=== PATIENT | male | born 1975 | race Caucasian/White ===

== ENCOUNTER 2021-05-16 09:01 | Outpatient (CLI) | payer OTHER, SELFPAY ==
--- NOTE | 2021-05-16 09:24 | ECG_ITS ---
Measurements Intervals [place] Rate: 47 P: 51 RI: 145 QRS: 31 QRSD: 98 T: 35 QT: 427 QTc: 378 Interpretive Statements MARKED SINUS BRADYCARDIA NONSPECIFIC T-WAVE ABNORMALITY ABNORMAL ECG NO PREVIOUS ECG AVAILABLE FOR COMPARISON Electronically Signed On 05-16-2021 16:23:15 CDT by Duran Mosley M.D.
== END 2021-05-16 09:02 | disposition home or self-care (01) ==
LOC: ANHCARD 09:05
PROVIDERS: PCP Family Medicine; Visit Provider Nurse Practitioner Family
DX: R07.89 Other chest pain (principal); R94.31 Abnormal electrocardiogram [ECG] [EKG]
CPT/HCPCS: 93005

== ENCOUNTER 2021-06-12 08:59 | Outpatient (CLI) | payer OTHER, SELFPAY ==
--- NOTE | 2021-06-12 09:10 | EST_ITS ---
Patient Info Name: Tung Boogie Age: 46 years : 1975 Gender: Male Ht: 72 in Wt: 196 lbs BSA: 2.14 m2 Exam Date: 06/12/2021 9:24 AM Exam Location: [facility] Stress Patient Status: Outpatient Admit Date: 06/12/2021 Staff Ordering Physician: Ebonie Guzmán Attending Provider: Ebonie Guzmán Exercise Technologist: Staci Cormier CT Exercise Physician: Michael Landaverde DO Exam Type: CA stress test treadmill Study Info Indications R07.9 - Chest pain, unspecified An exercise stress test was performed. Summary 1. 1. Negative Etienne exercise stress test for ischemic ST changes by ECG criteria. 2. 2. Good functional capacity, achieving 12 METs of workload. 3. 3. Baseline hypertension with hypertensive response to exercise. 4. 4. Appropriate HR response to exercise. 5. 5. Appropriate HR recovery at 1 minute post exercise. 6. 6. No imaging with stress testing. 7. 7. Patient informed of the above results. Protocol: Etienne Stress ECG Details Stage: REST Duration (min): 2 min : 26 sec Speed (mph): 0.0 Grade (%): 0 HR (bpm): 67 SBP (mmHg): 147 DBP (mmHg): 94 METS: --- Stage: REST Duration (min): 4 min : 39 sec Speed (mph): 0.0 Grade (%): 0 HR (bpm): 76 SBP (mmHg): 147 DBP (mmHg): 94 METS: --- Stage: STAGE 1 Duration (min): 1 min : 0 sec Speed (mph): 1.7 Grade (%): 10 HR (bpm): 83 SBP (mmHg): 147 DBP (mmHg): 94 METS: --- Stage: STAGE 1 Duration (min): 2 min : 0 sec Speed (mph): 1.7 Grade (%): 10 HR (bpm): 86 SBP (mmHg): 147 DBP (mmHg): 94 METS: --- Stage: STAGE 1 Duration (min): 3 min : 0 sec Speed (mph): 1.7 Grade (%): 10 HR (bpm): 88 SBP (mmHg): 159 DBP (mmHg): 89 METS: --- Stage: STAGE 2 Duration (min): 1 min : 0 sec Speed (mph): 2.5 Grade (%): 12 HR (bpm): 94 SBP (mmHg): 159 DBP (mmHg): 89 METS: --- Stage: STAGE 2 Duration (min): 2 min : 0 sec Speed (mph): 2.5 Grade (%): 12 HR (bpm): 96 SBP (mmHg): 161 DBP (mmHg): 88 METS: --- Stage: STAGE 2 Duration (min): 3 min : 0 sec Speed (mph): 2.5 Grade (%): 12 HR (bpm): 101 SBP (mmHg): 161 DBP (mmHg): 88 METS: --- Stage: STAGE 3 Duration (min): 1 min : 0 sec Speed (mph): 3.4 Grade (%): 14 HR (bpm): 108 SBP (mmHg): 188 DBP (mmHg): 88 METS: --- Stage: STAGE 3 Duration (min): 2 min : 0 sec Speed (mph): 3.4 Grade (%): 14 HR (bpm): 114 SBP (mmHg): 188 DBP (mmHg): 88 METS: --- Stage: STAGE 3 Duration (min): 3 min : 0 sec Speed (mph): 3.4 Grade (%): 14 HR (bpm): 116 SBP (mmHg): 196 DBP (mmHg): 91 METS: --- Stage: STAGE 4 Duration (min): 1 min : 0 sec Speed (mph): 4.2 Grade (%): 16 HR (bpm): 133 SBP (mmHg): 196 DBP (mmHg): 91 METS: --- Stage: ST
== END 2021-06-12 09:00 | disposition home or self-care (01) ==
LOC: ANHCARD 09:02
PROVIDERS: PCP Family Medicine; Visit Provider Nurse Practitioner Family
DX: R07.89 Other chest pain (principal)
CPT/HCPCS: 93017

== ENCOUNTER → 2021-09-29 16:30 | Outpatient (CLI) | payer OTHER, SELFPAY ==
--- NOTE | ~2021-09-29 | XR_ITS ---
XR hip RT 2V w AP pelvis DATE: 09/29/2021 16:47 INDICATION: Right hip pain TECHNIQUE: AP pelvis. AP and lateral views of right hip COMPARISON: None FINDINGS: No pelvic fracture or bone destruction. The pubic symphysis and sacroiliac joints are intac t. There is mildly severe right hip osteoarthritis including joint space narrowing and spurring. No frac ture or dislocation or bone destruction of the right hip is detected. IMPRESSION: Moderately severe right hip osteoarthritis Reviewed, dictated and finalized at location B.
== END ==
PROVIDERS: PCP Family Medicine; Visit Provider Nurse Practitioner Family
DX: M25.551 Pain in right hip (principal); M16.11 Unilateral primary osteoarthritis, right hip
CPT/HCPCS: 73502

== ENCOUNTER → 2022-02-04 07:35 | Outpatient (CLI) | payer OTHER, SELFPAY ==
--- NOTE | ~2022-02-04 | MR_ITS ---
MRI of the right hip Clinical history: Right hip pain Technique: Coronal T1-weighted, T2-weighted, and proton density fat sat images, and axial T1-weighted and proton-density fat-sat images were acquired through the pelvis. Coronal T2-weighted and proton-d ensity fat-sat images, axial proton density fat-sat images, and sagittal proton density fat sat image s were acquired to the right hip. Findings: There is no fracture, avascular necrosis or transient osteoporosis of either hip. There is moderate osteoarthritis of the right hip joint. There is diffuse chondromalacia of the right hip join t with joint space narrowing and osteophyte formation at the right femoral head neck junction. Minima l right hip joint effusion present. There is probable mild degenerative change of the left hip joint with probable mild diffuse chondromalacia. Suspected subtle superior right acetabular labral tear, likely on a degenerative basis. Visualized musculature about the pelvis and right hip is unremarkable. No muscle atrophy or edema. No evidence for bursitis. No soft tissue mass identified. Visualized tendons appear intact. IMPRESSION: Moderate osteoarthritis of the right hip joint, as detailed above. Reviewed, dictated and finalized at location [] [facility]
== END ==
PROVIDERS: PCP Family Medicine; Visit Provider Nurse Practitioner Family
DX: M16.11 Unilateral primary osteoarthritis, right hip (principal)
CPT/HCPCS: 73721

== ENCOUNTER 2023-04-27 07:57 | Outpatient (CLI) | payer OTHER, SELFPAY | END 2023-04-27 07:58 | disposition home or self-care (01) | LOC: ANHAUDIO 07:57 | PROVIDERS: PCP Family Medicine; Visit Provider Nurse Practitioner Adult Health | DX: H90.0 Conductive hearing loss, bilateral (principal); H93.12 Tinnitus, left ear | CPT/HCPCS: 92557; 92567 ==

== ENCOUNTER 2023-08-23 14:15 | Outpatient (CLI) | payer OTHER, SELFPAY ==
--- NOTE | 2023-08-23 14:30 | ECG_ITS ---
Test Date: 2023-08-23 14:32:44 Measurements Intervals [place] Rate: 54 P: 21 DC: 142 QRS: 7 QRSD: 108 T: -35 QT: 419 QTc: 400 Interpretive Statements SINUS BRADYCARDIA BASELINE ARTIFACT- I, II, III, AVR, AVL, AVF, V1-V6 BORDERLINE ECG No previous ECG available for comparison Electronically Signed On 08-23-2023 15:16:50 CDT by Michael Landaverde D.O.
== END 2023-08-23 14:16 | disposition home or self-care (01) ==
LOC: ANHSURGERY 14:18
PROVIDERS: PCP Family Medicine; Visit Provider Otolaryngology
DX: Z01.818 Encounter for other preprocedural examination (principal); I10 Essential (primary) hypertension
CPT/HCPCS: 93005

== ENCOUNTER 2023-08-27 00:11 | Day surgery (SDC) | payer OTHER, SELFPAY ==
[2023-08-18 15:01] VITALS: BMI 27.9
--- NOTE | 2023-08-18 15:02 | PC.NURSE ---
Report to the Outpatient Waiting Room, entrance under the green pavilion located off [facility], at time _1130_ on date _[id number]_. Planned Procedure Time: _130pm_. Time changes happen often and if your time is changed the preop area will call you the afternoon before. - You and your visitor will be asked to self-screen and do not enter if you have any COVID symptoms. - A mask is optional within the hospital at this time. Patients may have clear liquids (water, carbonated beverages, clear teas, apple juice) until 3 hours prior to surgery with a maximum of 20 ounces. - No food from midnight until time of surgery Take the following medications with a SIP of water the morning of surgery: __Metoprolol, Azestaline and Flonase DO NOT STOP ANY OF YOUR OTHER PRESCRIPTION MEDICATIONS PRIOR TO SURGERY ?EXCEPT THE FOLLOWING Medications to discontinue per physician ____Fish oil and vitamin Date to take last jnqh___[phone] Please no make-up, nail hungarian, hairspray, perfume, deodorant, or body powder the day of surgery. No jewelry (including any body piercings) or valuables the day of surgery, leave them at home. Please take a shower or bath the night before, or the morning of, surgery with an antibacterial soap. Wear comfortable, loose fitting clothing. - Jewelry must be removed prior to entering the operating room. Rings and piercings that are not removed may be cut off. - The hospital will not accept responsibility for valuables. - Please leave all valuables, including medications, at home the day of surgery. If you are going home after surgery, a licensed milk pickup truck driver must drive you home. - NO public transportation without another adult if you receive anesthesia. - We recommend that an adult stay with you for 24 hours following discharge. - We also recommend that you do not drive, make important decision, drink alcoholic beverages, or take any drugs that were not prescribed by your health care provider for at least 24 hours after your discharge time. Follow any additional instructions given to you from your surgeon. If you or anyone in your household have experienced Covid symptoms in the past week, please notify your surgeon or the nurse liaison at the phone number below for possible testing. Telephone instructions given to __Jay__and asked if any additional questions and then verbalized understanding. Patient advised to call surgeon office or pre surgery nurse liaison [phone] if any additional questions.
--- NOTE | 2023-08-26 15:51 | PM.IMHP ---
H&P: HPI History of Present Illness Date/Time: 08/26/23 15:51 Chief Complaint: recurrent otitis media chronic otitis media Narrative: planned procedure Review of Systems Review of Systems: All systems reviewed & are unremarkable except as noted in HPI and below [facility] Past Medical History Medical History Arthritis of hip BMI 26.0-26.9,adult Degenerative joint disease (DJD) of hip Dermatitis Elevated glucose Elevated lipids Elevated liver enzymes Essential (primary) hypertension Hearing loss of both ears [place] (hard of hearing) Left ankle pain Right hip pain Screening for malignant neoplasm of prostate Screening for prostate cancer Sensation of chest pressure Sinusitis Trochanteric bursitis, right hip Family History Family History Father Hypertension Social History Social History (Updated 07/22/23 @ 08:29 by Sandra Demarco CMA) Smoking packs per day: 0.5 Smoking cigarettes per day: 10.0 Years smoked: 12 Smoking pack-years: 6.00 Smoking status: Former smoker Tobacco type: cigarettes Smoking end date: 08/18/95 Alcohol intake: current Drinks per week: 12 Substance use: never Substance use type: does not use Do You Feel Safe in your Home?: Yes Lack of Transportation: No Lack of Food: Never True Current Housing: I Have Housing Concerned About Future Housing: No Difficulty Paying Gas/Electric Bills: No Difficulty Paying for Meds: No Currently Unemployed: No Education: Associate Degree Difficulty w/ Childcare or Family Care: No Living arrangements: with family Spiritual care concerns: No Meds Home Medications and Allergies Home Medications Medication Instructions Recorded Confirmed Type clobetasol 0.05 % topical ointment 1 applic topical DAILY PRN 02/12/23 08/18/23 Rx dermatitis #15 grams metoprolol succinate 50 mg 50 mg PO DAILY #90 tabs 05/12/23 08/18/23 Rx tablet,extended release 24 hr fluticasone propionate 50 2 - 3 spray intranasal BID #16 mL 07/22/23 08/18/23 Rx mcg/actuation nasal spray,suspension (Flonase Allergy Relief) lisinopril 20 mg tablet See Rx Instructions .Route 08/06/23 08/18/23 Rx .COMPLEX #180 tabs rosuvastatin 10 mg tablet 10 mg PO DAILY #90 tabs 08/06/23 08/18/23 Rx azelastine 137 mcg (0.1 %) nasal 1 - 2 spray intranasal Q12H #30 mL 08/09/23 08/18/23 Rx spray multivitamin 1 tablet PO DAILY 08/18/23 08/18/23 History omega 8-wpn-zia-fish oil 1,200 mg 1 cap PO DAILY 08/18/23 08/18/23 History (144 mg-216 mg) capsule (Fish Oil) Allergies Allergy/AdvReac Type Severity Reaction Status Date / Time bacitracin Allergy Unknown Unknown Verified 08/18/23 14:51 polymyxin B Allergy Unknown Unknown Verified 08/18/23 14:51 Exam Narrative: fluid in the ears Assessment and Plan Assessment and plan (1) Hearing loss of both ears: Code(s): H91.93 - Unspecified hearing loss, bilateral Status: Acute Assessment and Plan: plan OR bilateral myringotomy with tube insertion, likely T tubes. Risks discussed bleeding infection damage to surrounding structures total deafness facial nerve paralysis cholesteatoma formation failure to resolve symptoms need for tube replacement should they fall out. Postoperative bleeding infection damage to surrounding structures damage to any structure of the clavicle by myself damage to any structure during induction and maintenance of anesthesia and LMA placement or endotracheal tube placement. (2) Chronic otitis media of both ears: Code(s): H66.93 - Otitis media, unspecified, bilateral Status: Acute
[2023-08-27] VITALS (8 sets, daily range): BP systolic 92–137; BP diastolic 58–88; PULSE 43–63; RESP 12–20; TEMP 36.2–36.4; O2SAT 98–100
--- NOTE | 2023-08-27 07:19 | WPDHPUPDATE1 ---
History and Physical Update Update Date/Time: 08/27/23 07:19 History and Physical has been reviewed, including an updated exam of the patient. There are NO changes in the patient's condition. Risks, benefits, and alternatives have been discussed and questions answered. Patient agrees to proceed with procedure.
--- NOTE | 2023-08-27 10:29 | WPDANESEPPF ---
Anes - Initial Pre Proc Eval Procedure: Operation Date: 08/27/23 13:30 Proposed Procedures p Bilateral Myringotomy,Insertion Of Tubes - Miky Reed MD Date/Time: 08/27/23 10:29 Surgeon: Miky Reed MD Pre Op Diagnosis: chronic otitis media Patient Data Age: 48 Gender: M Height: 1.8 m Weight: 90.1 kg Last Vital Signs Temp 36.4 C L 08/27/23 09:56 Pulse 55 L 08/27/23 09:56 Resp 20 08/27/23 09:56 BP 137/81 08/27/23 09:56 Pulse Ox 98 08/27/23 09:56 O2 Del Method Room Air 08/27/23 09:56 Allergies Allergy/AdvReac Type Severity Reaction Status Date / Time bacitracin Allergy Unknown Unknown Verified 08/27/23 09:54 polymyxin B Allergy Unknown Unknown Verified 08/27/23 09:54 Home Medications Medication Instructions Recorded Confirmed Type clobetasol 0.05 % topical ointment 1 applic topical DAILY PRN 02/12/23 08/18/23 Rx dermatitis #15 grams metoprolol succinate 50 mg 50 mg PO DAILY #90 tabs 05/12/23 08/27/23 Rx tablet,extended release 24 hr fluticasone propionate 50 2 - 3 spray intranasal BID #16 mL 07/22/23 08/27/23 Rx mcg/actuation nasal spray,suspension (Flonase Allergy Relief) lisinopril 20 mg tablet See Rx Instructions .Route 08/06/23 08/27/23 Rx .COMPLEX #180 tabs rosuvastatin 10 mg tablet 10 mg PO DAILY #90 tabs 08/06/23 08/27/23 Rx azelastine 137 mcg (0.1 %) nasal 1 - 2 spray intranasal Q12H #30 mL 08/09/23 08/27/23 Rx spray multivitamin 1 tablet PO DAILY 08/18/23 08/27/23 History omega 0-izu-otz-fish oil 1,200 mg 1 cap PO DAILY 08/18/23 08/27/23 History (144 mg-216 mg) capsule (Fish Oil) Patient hx anesthesia problems: none Family hx anesthesia problems: none Results Review: All pre-operative results and documents have been reviewed as part of the pre-operative evaluation. [facility] Past Medical History Medical History Arthritis of hip BMI 26.0-26.9,adult Degenerative joint disease (DJD) of hip Dermatitis Elevated glucose Elevated lipids Elevated liver enzymes Essential (primary) hypertension Hearing loss of both ears [place] (hard of hearing) Left ankle pain Right hip pain Screening for malignant neoplasm of prostate Screening for prostate cancer Sensation of chest pressure Sinusitis Trochanteric bursitis, right hip Family History Family History Father Hypertension Social History Social History Smoking packs per day: 0.5 Smoking cigarettes per day: 10.0 Years smoked: 12 Smoking pack-years: 6.00 Smoking status: Former smoker Tobacco type: cigarettes Smoking end date: 08/18/95 Alcohol intake: current Drinks per week: 12 Substance use: never Substance use type: does not use Do You Feel Safe in your Home?: Yes Lack of Transportation: No Lack of Food: Never True Current Housing: I Have Housing Concerned About Future Housing: No Difficulty Paying Gas/Electric Bills: No Difficulty Paying for Meds: No Currently Unemployed: No Education: Associate Degree Difficulty w/ Childcare or Family Care: No Living arrangements: with family Spiritual care concerns: No Anes - Eval Final PreProcedure Day of Procedure 08/27/23 10:29 Patient weight: overweight Heart: regular rate and rhythm Lungs: clear to auscultation Airway: Mallampati scale class II Neurological: alert and oriented Last oral intake: >/= 8 hours ASA classification: II Emergent: no Anesthetic plan: proceed Anesthesia type and monitoring: general LMA and standard monitoring Results Review: All pre-operative results and documents have been reviewed as part of the pre-operative evaluation. Informed Consent: The patient's anesthetic plan and its attendant risks and benefits were discussed with the patient/family/POA. Questions were solicited and answers provided to the sa
[2023-08-27] MEDS: LACTATED RINGERS 1,000 ML 30 ML IV CONT (10:35)
--- NOTE | 2023-08-27 12:09 | W.PM.PROC2 ---
Procedure Note - Detailed Date of Procedure 08/27/23 Pre-op Diagnosis chronic otitis media Post-op Diagnosis Same Procedure Performed Bilateral myringotomy tube insertion T-Tube Surgeon Miky Reed MD Anesthesia General Indications see above Findings aerated middle ears today Description of Procedure patient identified consent her head preop. Patient brought to the operating. Time-out performed. General anesthesia induced LMA secured. Patient prepped draped position procedure confirmed. Right-sided viewed myringotomy made T-Tube placed aerated middle ear today. Left-sided viewed myringotomy made T-Tube placed drops placed drops placed on the right as well. Aerated middle ears on both sides today. Patient tolerated the procedure well no complications patient taken to. PACU Estimated Blood Loss 0 Drains No Packing No Pathology None sent Complications No immediate complications Condition Stable Disposition PACU [facility] Billing Surgery - Charge Forward: Surgery Billing
== END 2023-08-27 13:40 | disposition home or self-care (01) ==
PROVIDERS: PCP Family Medicine; Visit Provider Otolaryngology
PROC: (CPT 69436; principal; 2023-08-27 13:30)
DX: H66.93 Otitis media, unspecified, bilateral (principal); H91.93 Unspecified hearing loss, bilateral; Z87.891 Personal history of nicotine dependence; I10 Essential (primary) hypertension
CPT/HCPCS: 69436; 93005; A9270; J2250; J3010; J7120

== ENCOUNTER 2023-12-08 01:56 | Day surgery (SDC) | payer OTHER, SELFPAY ==
[2023-11-18 12:58] VITALS: BMI 27.1
[2023-12-08 09:40] VITALS: BP 132/97; PULSE 61; RESP 18; TEMP 35.8; O2SAT 100; BMI 26.2
[2023-12-08] MEDS: LACTATED RINGERS 1,000 ML 150 ML IV CONT (10:01)
--- NOTE | 2023-12-08 10:21 | WPDANESEPPF ---
Anes - Initial Pre Proc Eval Procedure: Operation Date: 12/08/23 11:00 Proposed Procedures p Colonoscopy - Riley Cheng MD Date/Time: 12/08/23 10:21 Surgeon: Riley Cheng MD Pre Op Diagnosis: other fecal abnormalities Patient Data Age: 48 Gender: M Height: 1.83 m Weight: 87.8 kg Last Vital Signs Temp 96.5 F L 12/08/23 09:40 Pulse 61 12/08/23 09:40 Resp 18 12/08/23 09:40 BP 132/97 H 12/08/23 09:40 Pulse Ox 100 12/08/23 09:40 O2 Del Method Room Air 12/08/23 09:40 Allergies Allergy/AdvReac Type Severity Reaction Status Date / Time bacitracin Allergy Unknown Unknown Verified 12/08/23 09:48 polymyxin B Allergy Unknown Unknown Verified 12/08/23 09:48 Home Medications Medication Instructions Recorded Confirmed Type metoprolol succinate 50 mg 50 mg PO DAILY #90 tabs 05/12/23 12/08/23 Rx tablet,extended release 24 hr fluticasone propionate 50 2 - 3 spray intranasal BID #16 mL 07/22/23 12/08/23 Rx mcg/actuation nasal spray,suspension (Flonase Allergy Relief) rosuvastatin 10 mg tablet 10 mg PO DAILY #90 tabs 08/06/23 12/08/23 Rx multivitamin 1 tablet PO DAILY 08/18/23 12/08/23 History omega 1-jwf-uws-fish oil 1,200 mg 1 cap PO DAILY 08/18/23 12/08/23 History (144 mg-216 mg) capsule (Fish Oil) lisinopril 20 mg tablet See Rx Instructions .Route 11/08/23 12/08/23 Rx .COMPLEX #180 tabs Patient hx anesthesia problems: none Family hx anesthesia problems: none Results Review: All pre-operative results and documents have been reviewed as part of the pre-operative evaluation. [facility] Past Medical History Medical History Arthritis of hip Degenerative joint disease (DJD) of hip Dermatitis Elevated glucose Elevated lipids Elevated liver enzymes Essential (primary) hypertension Hearing loss of both ears [place] (hard of hearing) Left ankle pain Right hip pain Screening for malignant neoplasm of prostate Screening for prostate cancer Sensation of chest pressure Sinusitis Trochanteric bursitis, right hip Surgical History Surgical History S/p bilateral myringotomy with tube placement Family History Family History Father Hypertension Social History Social History Smoking packs per day: 1 Smoking cigarettes per day: 20.0 Years smoked: 12 Smoking pack-years: 12.00 Smoking status: Former smoker Tobacco type: cigarettes Smoking end date: 08/18/95 Alcohol intake: current Drinks per week: 18 Substance use: current Substance use type: marijuana Do You Feel Safe in your Home?: Yes Lack of Transportation: No Lack of Food: Never True Current Housing: I Have Housing Concerned About Future Housing: No Difficulty Paying Gas/Electric Bills: No Difficulty Paying for Meds: No Currently Unemployed: No Education: Associate Degree Difficulty w/ Childcare or Family Care: No Living arrangements: with family Spiritual care concerns: No Anes - Eval Final PreProcedure Day of Procedure 12/08/23 10:21 Patient weight: normal Heart: regular rate and rhythm Lungs: clear to auscultation Airway: Mallampati scale class II Neurological: alert and oriented Last oral intake: >/= 8 hours ASA classification: III Emergent: no Anesthetic plan: proceed Anesthesia type and monitoring: general GIVS and standard monitoring Results Review: All pre-operative results and documents have been reviewed as part of the pre-operative evaluation. Informed Consent: The patient's anesthetic plan and its attendant risks and benefits were discussed with the patient/family/POA. Questions were solicited and answers provided to the satisfaction of the patient/family/POA.
--- NOTE | 2023-12-08 10:27 | PM.HPGS ---
History of Present Illness History of Present Illness Consent: Risks, benefits, and alternatives have been discussed and questions answered. Patient agrees to proceed with procedure. Chief complaint: other fecal abnormalities Narrative: Tung Boogie is a 48 year old male here for first screening colonoscopy, + cologuard Review of Systems Review of Systems: All systems reviewed & are unremarkable except as noted in HPI and below PMF[facility] Past Medical History Medical History Arthritis of hip Degenerative joint disease (DJD) of hip Dermatitis Elevated glucose Elevated lipids Elevated liver enzymes Essential (primary) hypertension Hearing loss of both ears [place] (hard of hearing) Left ankle pain Right hip pain Screening for malignant neoplasm of prostate Screening for prostate cancer Sensation of chest pressure Sinusitis Trochanteric bursitis, right hip Surgical History Surgical History S/p bilateral myringotomy with tube placement Family History Family History Father Hypertension Social History Social History Smoking packs per day: 1 Smoking cigarettes per day: 20.0 Years smoked: 12 Smoking pack-years: 12.00 Smoking status: Former smoker Tobacco type: cigarettes Smoking end date: 08/18/95 Alcohol intake: current Drinks per week: 18 Substance use: current Substance use type: marijuana Do You Feel Safe in your Home?: Yes Lack of Transportation: No Lack of Food: Never True Current Housing: I Have Housing Concerned About Future Housing: No Difficulty Paying Gas/Electric Bills: No Difficulty Paying for Meds: No Currently Unemployed: No Education: Associate Degree Difficulty w/ Childcare or Family Care: No Living arrangements: with family Spiritual care concerns: No Meds Home Medications and Allergies Home Medications Medication Instructions Recorded Confirmed Type metoprolol succinate 50 mg 50 mg PO DAILY #90 tabs 05/12/23 12/08/23 Rx tablet,extended release 24 hr fluticasone propionate 50 2 - 3 spray intranasal BID #16 mL 07/22/23 12/08/23 Rx mcg/actuation nasal spray,suspension (Flonase Allergy Relief) rosuvastatin 10 mg tablet 10 mg PO DAILY #90 tabs 08/06/23 12/08/23 Rx multivitamin 1 tablet PO DAILY 08/18/23 12/08/23 History omega 1-wmv-pdg-fish oil 1,200 mg 1 cap PO DAILY 08/18/23 12/08/23 History (144 mg-216 mg) capsule (Fish Oil) lisinopril 20 mg tablet See Rx Instructions .Route 11/08/23 12/08/23 Rx .COMPLEX #180 tabs Allergies Allergy/AdvReac Type Severity Reaction Status Date / Time bacitracin Allergy Unknown Unknown Verified 12/08/23 09:48 polymyxin B Allergy Unknown Unknown Verified 12/08/23 09:48 Vital Signs Vital Signs - 24 hr 12/08/23 09:40 Temperature 96.5 F L Pulse Rate 61 Respiratory Rate 18 Blood Pressure 132/97 H Pulse Oximetry 100 Oxygen Delivery Room Air Exam Const: General: comfortable and no acute distress HENMT: Face/Nose/Sinus: Normal nares present Eyes: General: appearance normal, both eyes and all related structures Neck: Neck: no JVD Resp: Auscultation: clear to auscultation bilaterally Cardio: Rate: regular rate Rhythm: regular rhythm GI: Inspection: non-distended GI Palp: Yes Soft to palpation Skin: General skin exam: normal color Neuro: General: gait normal Speech: normal speech Extrem: General: normal to inspection Psych: Mental Status: mental status grossly normal Assessment and Plan Assessment and plan (1) Positive colorectal cancer screening using Cologuard test: Code(s): R19.5 - Other fecal abnormalities Status: Acute Assessment and Plan: colonoscopy
[2023-12-08 10:43] VITALS: BP 129/65; PULSE 66; RESP 22; O2SAT 100
[2023-12-08 10:53] VITALS: BP 111/73; PULSE 69; RESP 23; O2SAT 100
[2023-12-08 11:03] VITALS: BP 106/65; PULSE 65; RESP 18; O2SAT 100
== END 2023-12-08 11:06 | disposition home or self-care (01) ==
PROVIDERS: PCP Family Medicine; Referring Provider Nurse Practitioner Family; Visit Provider Internal Medicine Gastroenterology
PROC: 0DJD8ZZ Inspection of Lower Intestinal Tract, Via Natural or Artificial Opening Endoscopic (ICD-10-PCS; CPT 45378; principal; 2023-12-08 11:00)
DX: K64.8 Other hemorrhoids (principal); I10 Essential (primary) hypertension; F12.90 Cannabis use, unspecified, uncomplicated; Z98.890 Other specified postprocedural states; Z87.891 Personal history of nicotine dependence
CPT/HCPCS: 45378; J2003; J2704; J7120